=== PATIENT | female | born 1995 | race Caucasian/White ===

== ENCOUNTER 2019-01-03 15:58 | Emergency (ER) | payer OTHER, MEDICAID, SELFPAY ==
[2019-01-03 16:22] VITALS: BP 130/87; PULSE 133; RESP 20; TEMP 37.2; O2SAT 99; BMI 30.5
--- NOTE | 2019-01-03 16:32 | DI.US.S_ITS ---
PROCEDURE: US PELVIC COMPLETE INDICATIONS: s/p by 1 week, large amt bleeding TECHNIQUE: Real-time scanning was performed of the pelvic organs, with image documentation. Additional endovaginal scanning was necessary due to incomplete visualization of the adnexal and endometrial structures by transabdominal scanning. COMPARISON: [facility], , PELVIC COMPLETE, 06/28/2016, 7:02. FINDINGS: Transabdominal scanning: Limited scanning through the kidneys demonstrates increased echogenicity within the medullary treatments suggestive of medullary nephrocalcinosis. No pathologic free abdominal or pelvic fluid. Endovaginal scanning: Uterus: Uterus measures 9.1 x 4.4 x 5.5 cm. The endometrium measures up to 1.6 cm in thickness and appears heterogeneous in appearance. No definite internal vascularity on color Doppler interrogation but there is adjacent vascularity noted along the margins of the endometrium. There is mobile debris noted within the endometrium. There is also isoechoic debris within the cervical canal. Ovaries: The ovaries were not visualized. No adnexal masses identified. IMPRESSION: 1. Thickened heterogeneous appearance of the endometrium with mobile contents. Although no definite internal vascularity is noted, retained products of conception cannot be excluded. Dictated by: Gilson Pink M.D. on 01/03/2019 at 19:01 Approved by: Gilson Pink M.D. on 01/03/2019 at 19:05
--- NOTE | 2019-01-03 16:37 | ED_ITS ---
HPI - Female Genitourinary General Chief complaint: Vaginal Bleeding Stated complaint: Bleeding/migraine Time Seen by Provider: 01/03/19 16:21 Source: patient Mode of arrival: ambulatory Limitations: no limitations History of Present Illness HPI Narrative: This is a 23-year-old female comes in with complaint of back pain and vaginal bleeding. Patient states week ago she had a . Since then she started having bleeding a couple days afterwards and it has gotten worse. She states seems more bright red she has noticed a lot of clots. She has had a lot of back pain bilaterally. She has not noticed if she has had any significant abdominal pain. She has not had any fevers but does feel chilled. She has not any shortness of breath or chest pain or pressure. No nausea or vomiting. No other GI or urinary symptoms. She has not noticed any foul odor other vaginal discharge. She has had 4 prior pregnancies that went to completion. She denies any other past medical history. [facility] in [place]. She follows with Dr. Beard is her primary care. Related Data Home Medications Medication Instructions Recorded Confirmed ibuprofen 800 mg PO TID PRN PRN 01/03/19 01/03/19 Previous Rx's Medication Instructions Recorded albuterol sulfate [Ventolin HFA] 2 puff INH Q4HP PRN #2 inh 03/15/17 vit-iron fum-folic ac 1 cap PO QDAY #90 cap 03/27/17 [Mynatal] [Maternity Band] #1 07/04/17 docusate sodium [Colace] 100 mg PO BID #30 cap 10/27/17 fluconazole [Diflucan] 150 mg PO QDAY #7 tab 11/26/17 drospirenone-ethinyl estradiol 1 tab PO QDAY #3 pac 01/29/18 [Ocella] etonogestrel-ethinyl estradiol 1 icr VG Q 3 WEEKS #10 vag ring 03/07/18 [NuvaRing] meloxicam [Mobic] 7.5 mg PO BID PRN #10 tab 01/03/19 Allergies Allergy/AdvReac Type Severity Reaction Status Date / Time amoxicillin [AMOXICILLIN] Allergy Mild Verified 01/03/19 16:22 bacitracin [BACITRACIN] Allergy Mild Verified 01/03/19 16:22 cefuroxime [CEFUROXIME] Allergy Mild Verified 01/03/19 16:22 clavulanic acid Allergy Mild Verified 01/03/19 16:22 [CLAVULANIC ACID] codeine [CODEINE] Allergy Mild Verified 01/03/19 16:22 egg [EGG] Allergy Mild Verified 01/03/19 16:22 hydrocodone [HYDROCODONE] Allergy Mild anaphylaxis Verified 01/03/19 16:22 Penicillins [PENICILLINS] Allergy Mild Verified 01/03/19 16:22 polymyxin B [POLYMYXIN B] Allergy Mild Verified 01/03/19 16:22 ciprofloxacin [CIPROFLOXACIN] Allergy Unknown Verified 01/03/19 16:22 mebendazole [MEBENDAZOLE] Allergy Unknown Unverified 02/27/18 13:04 neomycin [NEOMYCIN] Allergy Unknown Unverified 02/27/18 13:04 Sulfa (Sulfonamide Allergy Unknown Unverified 02/27/18 13:04 Antibiotics) [SULFA (SULFONAMIDE ANTIBIOTICS)] Review of Systems Review of Systems ROS Unobtainable: All systems reviewed & are unremarkable except as noted in HPI and below Constitutional Reports chills, Denies fever(s), Denies lethargy and Denies weakness Cardiovascular Denies chest pain and Denies dyspnea Respiratory Denies dyspnea Gastrointestinal Gastrointestinal: Denies abdominal pain, Denies change in bowel habits, Denies diarrhea, Denies nausea and Denies vomiting Genitourinary Reports as per HPI, Reports abnormal vaginal bleeding, Denies dysuria, Denies urinary incontinence, Denies urinary hesitancy, Denies urinary urgency, Denies vaginal discharge and Denies vaginal odor Musculoskeletal Reports back pain (bilateral lower back/pelvic area) Integumentary/Breasts Denies rash and Denies unusual bruising Neurologic Denies weakness [facility] Surgical History Status post myringotomy with insertion of tube Family History Father Hyperlipidemia Hypertension Depression Social History Smoking Status: Never smoker Family History Father Hyperlipidemia Hypertension Depression Social History marital status: Smoking Status: Never smoker Exam Initial Vital Signs Initial Vital Signs: Vital Signs Temperature 98.9 F 01/03/19 16:22 Pulse Rate 133 H 01/03/19 16:22 Respiratory Rate 20 01/03/19 16:22 Blood Pressure 130/87 01/03/19 16:22 Pulse Oximetry 99 01/03/19 16:22 GENERAL: Alert and oriented x three, well-nourished female in moderate distress. Patient appears mildly uncomfortable. HEENT: Head normocephalic, atraumatic, EOMI, pupils reactive, face symmetric, moist mucous membranes NECK: Supple, full range of motion CARDIOVASCULAR: Regular rate and rhythm without murmurs, rubs or gallops. RESPIRATORY: Breath sounds equal bilaterally, no wheezes rales or rhonchi. ABDOMEN: Soft, mild generalized tenderness. Normoactive bowel sounds all 4 quadrants. No guarding or rebound, rigidity, no mass : Bilateral CVA tenderness. Female: external vaginal exam is normal, mild vaginal bleeding, no discharge, mild cervical motion tenderness, normal speculum exam, no adnexal tenderness/mass. Bimanual exam is normal, no mildly enlarged and tender uterus. Non-gravid. EXTREMITIES: Normal range of motion, no clubbing or edema. Neurovascularly intact NEUROLOGICAL: Cranial nerves II through XII grossly intact. Moving all extremities SKIN: Warm, dry, no petechiae, no rashes or lesions. Course Orders Ordered: ED Orders 01/03/19 16:32 US pelvic complete Stat 01/03/19 16:40 Complete Blood Count AUTO DIFF Stat Comprehensive Metabolic Panel Stat HCG Quantitative Stat Lactate (Lactic Acid) Stat Partial Thromboplastin Time Stat Prothrombin Time INR Stat 01/03/19 17:07 Blood Culture Stat Discontinued Medications Sodium Chloride (Normal Saline 0.9%) 1,000 mls @ 1,000 mls/hr IV BOLUS ONE Stop: 01/03/19 17:31 Last Admin: 01/03/19 16:51 Dose: 1,000 mls/hr Ketorolac Tromethamine (Toradol) 30 mg IV NOW ONE Stop: 01/03/19 16:33 Last Admin: 01/03/19 16:52 Dose: 30 mg Vital Signs - 8 hr 01/03/19 16:22 01/03/19 18:34 Temperature 98.9 F Pulse Rate 133 H 117 H Respiratory Rate 20 16 Blood Pressure 130/87 Blood Pressure [Left Arm] 123/77 Pulse Oximetry 99 97 MDM - Female Genitourinary Lab Data Attestation: I reviewed the patient's lab results. Result diagrams: 01/03/19 16:40 01/03/19 16:40 Lab Results 01/03/19 01/03/19 01/03/19 Range/Units 16:40 16:40 16:40 WBC 11.5 H (4.5-11.0) X10^3/uL RBC 4.82 (4.0-5.2) X10^6/uL Hgb 14.0 (12.0-16.0) g/dL Hct 41.8 (36-46) % MCV 86.8 (80-100) fL MCH 29.1 (26-34) PG MCHC 33.6 (30-36) % RDW 13.6 (11.6-14.8) % Plt Count 307 (150-400) X10^3/uL Neut % (Auto) 88.8 H (50-75) % Lymph % (Auto) 5.8 L (25-40) % Hendricks % (Auto) 5.0 (3-14) % Eos % (Auto) 0.1 L (2-4) % Baso % (Auto) 0.3 (0-2) % Neut # (Auto) 33638 H (8458-3336) /uL Lymph # (Auto) 700 L (3753-5163) /uL Hendricks # (Auto) 600 (0-900) /uL Eos # (Auto) 0 (0-450) /uL Baso # (Auto) 0 (0-100) /uL PT 12.6 (10.1-12.7) SECONDS INR 1.1 (0.9-1.3) APTT 26 L (26.4-36.2) SECONDS Sodium 138 (137-145) mmol/L Potassium 3.9 (3.4-5.1) mmol/L Chloride 101 (98-107) mmol/L Carbon Dioxide 27 (22-32) mmol/L BUN 9 (7-17) mg/dL Creatinine 0.80 (0.52-1.04) mg/dL Estimated GFR > 60.0 (>60) mL/min BUN/Creatinine Ratio 11.3 (6-22) Glucose 99 (70-100) mg/dL Lactate (0.7-2.1) mmol/L Calcium 9.5 (8.4-10.2) mg/dL Total Bilirubin 0.5 (0.2-1.3) mg/dL AST 20 (14-36) IU/L ALT 24 (9-52) IU/L Alkaline Phosphatase 97 (38-126) U/L Total Protein 7.8 (6.3-8.2) g/dL Albumin 4.4 (3.5-5.0) g/dL Globulin 3.4 (1.7-4.1) g/dL Albumin/Globulin Ratio 1.3 (1.0-2.8) 01/03/19 Range/Units 16:40 WBC (4.5-11.0) X10^3/uL RBC (4.0-5.2) X10^6/uL Hgb (12.0-16.0) g/dL Hct (36-46) % MCV (80-100) fL MCH (26-34) PG MCHC (30-36) % RDW (11.6-14.8) % Plt Count (150-400) X10^3/uL Neut % (Auto) (50-75) % Lymph % (Auto) (25-40) % Hendricks % (Auto) (3-14) % Eos % (Auto) (2-4) % Baso % (Auto) (0-2) % Neut # (Auto) (6373-9056) /uL Lymph # (Auto) (4412-5428) /uL Hendricks # (Auto) (0-900) /uL Eos # (Auto) (0-450) /uL Baso # (Auto) (0-100) /uL PT (10.1-12.7) SECONDS INR (0.9-1.3) APTT (26.4-36.2) SECONDS Sodium (137-145) mmol/L Potassium (3.4-5.1) mmol/L Chloride (98-107) mmol/L Carbon Dioxide (22-32) mmol/L BUN (7-17) mg/dL Creatinine (0.52-1.04) mg/dL Estimated GFR (>60) mL/min BUN/Creatinine Ratio (6-22) Glucose (70-100) mg/dL Lactate 1.2 (0.7-2.1) mmol/L Calcium (8.4-10.2) mg/dL Total Bilirubin (0.2-1.3) mg/dL AST (14-36) IU/L ALT (9-52) IU/L Alkaline Phosphatase (38-126) U/L Total Protein (6.3-8.2) g/dL Albumin (3.5-5.0) g/dL Globulin (1.7-4.1) g/dL Albumin/Globulin Ratio (1.0-2.8) Point of Care Testing Test Results Positive Urine Dip Bedside Urine Glucose Negative Bedside Urine Bilirubin - Negative Bedside Urine Ketone - Negative Urine Specific [place] 1.015 Bedside Urine Occult Blood +++ Bedside Urine pH 7.5 Bedside Urine Protein +/- 15 Bedside Urine Urobilinogen - Negative Bedside Urine Nitrite - Negative Bedside Urine Leukocytes - Negative Esterase MDM Narrative Medical decision making narrative: Quant HCG added on as patient still has positive test s/p . Pending. Patient labs show normal hemoglobin which is up from last. Pelvic US is pending. Patient hemodynamically stable in department. No signs of sepsis. Patient symptoms improved after Toradol but after pelvic exam and US worsening. She drove herself and does not have a ride. Patient signed out to Dr. Yee while US is pending for final disposition. Discharge Plan Departure Activity Restrictions/Additional Instructions: Follow up with Dr. Beard in the next 3-4 days for recheck. Call Sunday morning for an appointment. A HCG level was sent today for baseline lab, they will want to make sure your HCG level returns to 0 and will need recheck. You may take tylenol up to 1000mg every 8 hours as needed for pain, you have also been prescribed mobic 7.5mg which you can take twice daily as needed for pain. You may take these two medications together. Return to the emergency department for fevers, worsening abdominal pain, black or bloody stools, persistent vomiting, foul odor or purulent discharge vaginal area, painful urination frequency or urgency. Prescriptions: New meloxicam [Mobic] 7.5 mg tablet 7.5 mg PO BID PRN (Reason: pain) Qty: 10 RF: 0 No Action albuterol sulfate [Ventolin HFA] 90 MCG/PUFF HFA aerosol inhaler 2 puff INH Q4HP PRNQty: 2 RF: 2 vit-iron fum-folic ac [Mynatal] 1 EACH capsule 1 cap PO QDAY Qty: 90 RF: 3 [Maternity Band] Qty: 1 RF: 0 docusate sodium [Colace] 100 MG capsule 100 mg PO BID Qty: 30 RF: 0 fluconazole [Diflucan] 150 MG tablet 150 mg PO QDAY Qty: 7 RF: 0 drospirenone-ethinyl estradiol [Ocella] 0.03 MG/3 MG tablet 1 tab PO QDAY Qty: 3 RF: 3 etonogestrel-ethinyl estradiol [NuvaRing] 1 EACH ring 1 icr VG Q 3 WEEKS Qty: 10 RF: 0 ibuprofen 800 MG tablet 800 mg PO TID PRN PRN (Reason: pain) RF: 0 Referrals: Frank Beard MD [Primary Care Provider] -
[2019-01-03 16:49] LABS: Add Manual Diff / Slide Review NO; Basophils Absolute Auto 0 /uL (0-100); Basophils Percent Auto 0.3 % (0-2); Eosinophils Absolute Auto 0 /uL (0-450); Eosinophils Percent Auto 0.1 % (2-4); Hematocrit 41.8 % (36-46); Lymphocytes Absolute Auto 700 /uL (1100-4500); Lymphocytes Percent Auto 5.8 % (25-40); Mean Corpuscular HGB Conc 33.6 % (30-36); Mean Corpuscular Hemoglobin 29.1 PG (26-34); Mean Corpuscular Volume 86.8 fL (80-100); Monocytes Absolute Auto 600 /uL (0-900); Neutrophils Absolute Auto 10200 /uL (1500-7000); Neutrophils Percent Auto 88.8 % (50-75); Platelet Count 307 X10^3/uL (150-400); Red Blood Cell Count 4.82 X10^6/uL (4.0-5.2); Red Cell Distribution Width 13.6 % (11.6-14.8); White Blood Cell Count 11.5 X10^3/uL (4.5-11.0)
[2019-01-03] MEDS: SODIUM CHLORIDE 0.9% 1,000 ML 1000 ML IV (16:51)
[2019-01-03] MEDS: KETOROLAC 30 MG/ML VIAL IV (16:52)
[2019-01-03 16:56] LABS: INR 1.1 (0.9-1.3); Prothrombin Time 12.6 SECONDS (10.1-12.7)
[2019-01-03 16:59] LABS: PTT Partial Thromboplastin Tim 26 SECONDS (26.4-36.2)
[2019-01-03 17:01] LABS: Alanine Aminotransferase 24 IU/L (9-52); Albumin 4.4 g/dL (3.5-5.0); Albumin Globulin Ratio 1.3 (1.0-2.8); Alkaline Phosphatase 97 U/L (38-126); Aspartate Aminotransferase 20 IU/L (14-36); BUN Creatinine Ratio 11.3 (6-22); Bilirubin Total 0.5 mg/dL (0.2-1.3); Blood Urea Nitrogen 9 mg/dL (7-17); Calcium 9.5 mg/dL (8.4-10.2); Carbon Dioxide 27 mmol/L (22-32); Chloride 101 mmol/L (98-107); Estimated Glomerular Filt Rate > 60.0 mL/min (>60); Globulin 3.4 g/dL (1.7-4.1); Glucose 99 mg/dL (70-100); HEMOLYSIS < 15 (0-50); Lactate (Lactic Acid) 1.2 mmol/L (0.7-2.1); Potassium 3.9 mmol/L (3.4-5.1); Sodium 138 mmol/L (137-145); Total Protein 7.8 g/dL (6.3-8.2)
[2019-01-03 18:34] VITALS: BP 123/77; PULSE 117; RESP 16; O2SAT 97
[2019-01-03 18:59] LABS: HCG Quantitative /Beta subunit 524.26 mIU/mL
[2019-01-03 19:16] VITALS: TEMP 37.7
[2019-01-03 19:28] VITALS: BP 100/55; PULSE 106; RESP 15; O2SAT 99
== END 2019-01-03 19:41 | disposition home or self-care (01) ==
PROVIDERS: Emergency Provider Emergency Medicine; Family Provider Family Medicine; PCP Family Medicine
DX: O03.4 Incomplete spontaneous abortion without complication (principal)
CPT/HCPCS: 36415; 36591; 76830; 76856; 80053; 81003; 81025; 83605; 84702; 85025; 85610; 85730; 87040; 96361; 96374; 99283; 99284; J1885

== ENCOUNTER → 2019-11-21 12:42 | Outpatient (CLI) | payer OTHER, MEDICAID, SELFPAY ==
--- NOTE | 2019-11-21 12:43 | DI.US.S_ITS ---
PROCEDURE: US PELVIC COMPLETE INDICATIONS: PAIN; DUB TECHNIQUE: Real-time scanning was performed of the pelvic organs, with image documentation. Additional endovaginal scanning was necessary due to incomplete visualization of the adnexal and endometrial structures by transabdominal scanning. COMPARISON: [facility], , US PELVIC COMPLETE, 01/03/2019, 17:24. FINDINGS: Transabdominal scanning: Limited scanning through the kidneys shows no hydronephrosis. Increased echogenicity involving the medullary portions of the kidneys is incidentally noted. No pathologic free abdominal or pelvic fluid. Endovaginal scanning: Uterus: Uterus is normal in size at 9.5 x 3.8 x 5.9 cm. The endometrium measures 11.7 mm in combined thickness. A small (3 mm) cystic structure is seen along the upper aspect of the endometrium. Endometrium is somewhat heterogeneous. No focal myometrial lesions are identified. Ovaries: Both ovaries are normal in size. The right ovary measures 1.90 1.6 x 1.2 cm. The left ovary measures 3.4 x 2.4 x 2.5 cm. There is a 2.4 x 2.0 x 2.1 cm cyst identified involving the left ovary that demonstrates low level internal echoes. No additional cysts are evident. Bilateral follicles are noted. IMPRESSION: 1. Cystic structure within the fundal portion of the endometrium is nonspecific and may represent adenomyosis. Clinical correlation to exclude the possibility of early is recommended. 2. Probable small left ovarian hemorrhagic cyst. Dictated by: James Huang M.D. on 11/21/2019 at 12:29 Approved by: James Huang M.D. on 11/21/2019 at 12:39
== END ==
PROVIDERS: Family Provider Family Medicine; PCP Family Medicine; Visit Provider Family Medicine
DX: N93.8 Other specified abnormal uterine and vaginal bleeding (principal); N92.3 Ovulation bleeding; N94.89 Other specified conditions associated with female genital organs and menstrual cycle
CPT/HCPCS: 76856

== ENCOUNTER 2020-01-01 00:26 | Emergency (ER) | payer OTHER, MEDICAID, SELFPAY ==
[2020-01-01 00:35] VITALS: BP 151/78; PULSE 84; RESP 15; TEMP 36.9; O2SAT 100; BMI 24.3
[2020-01-01 01:04] LABS: Hematocrit 39.7 % (36-46); Hemoglobin 13.4 g/dL (12.0-16.0)
--- NOTE | 2020-01-01 01:31 | ED.FEMALEGU ---
HPI - Female Genitourinary General Chief complaint: OB/Uterine Contractions Stated complaint: huge clots - miscarriage 2 weeks ago Time Seen by Provider: 01/01/20 00:30 Source: patient Mode of arrival: Family Vehicle Limitations: no limitations History of Present Illness HPI Narrative: 24F daily smoker is whom suggests she is about 6 weeks, but has likely been miscarrying for about two weeks. She states last period was mid October and she has had episodes of cramping and vaginal bleeding off and on for about 2 weeks. She denies fever or chills, she has had some cramps Related Data Previous Rx's Medication Instructions Recorded albuterol sulfate [Ventolin HFA] 2 puff INH Q4HP PRN #2 inh 03/15/17 drospirenone 3 mg-ethinyl 1 tab PO DAILY #84 tab 11/24/19 estradiol 0.03 mg tablet Allergies Allergy/AdvReac Type Severity Reaction Status Date / Time amoxicillin [AMOXICILLIN] Allergy Mild Verified 11/24/19 13:48 bacitracin [BACITRACIN] Allergy Mild Verified 11/24/19 13:48 cefuroxime [CEFUROXIME] Allergy Mild Verified 11/24/19 13:48 clavulanic acid Allergy Mild Verified 11/24/19 13:48 [CLAVULANIC ACID] codeine [CODEINE] Allergy Mild Verified 11/24/19 13:48 egg [EGG] Allergy Mild Verified 11/24/19 13:48 hydrocodone [HYDROCODONE] Allergy Mild anaphylaxis Verified 11/24/19 13:48 Penicillins [PENICILLINS] Allergy Mild Verified 11/24/19 13:48 polymyxin B [POLYMYXIN B] Allergy Mild Verified 11/24/19 13:48 ciprofloxacin [CIPROFLOXACIN] Allergy Unknown Verified 11/24/19 13:48 mebendazole [MEBENDAZOLE] Allergy Unknown Verified 11/24/19 13:48 neomycin [NEOMYCIN] Allergy Unknown Verified 11/24/19 13:48 Sulfa (Sulfonamide Allergy Unknown Verified 11/24/19 13:48 Antibiotics) [SULFA (SULFONAMIDE ANTIBIOTICS)] Review of Systems Constitutional Constitutional: Denies chills, Denies fatigue, Denies fever(s), Denies frequent falls, Denies lethargy and Denies weakness Eyes Eyes: Denies change in vision, Denies eye discharge, Denies irritation and Denies loss of vision ENT Ears, Nose, Mouth, and Throat: Denies change in voice, Denies dizziness, Denies neck pain, Denies sore throat and Denies throat swelling Cardiovascular Cardiovascular: Denies chest pain, Denies irregular heart rhythm, Denies lightheadedness, Denies palpitations, Denies dyspnea, Denies dyspnea on exertion and Denies orthopnea Respiratory Respiratory: Denies cough, Denies dyspnea, Denies dyspnea on exertion and Denies wheezing Gastrointestinal Gastrointestinal: Denies abdominal pain, Denies change in bowel habits, Denies diarrhea, Denies nausea and Denies vomiting Genitourinary Genitourinary: Denies hematuria, Denies flank pain, Denies urinary incontinence and Denies urinary urgency Musculoskeletal Musculoskeletal: Denies back pain, Denies muscle weakness, Denies neck pain, Denies numbness and Denies tingling Integumentary/Breasts Skin/Breast: Denies pruritus, Denies erythema, Denies rash and Denies wounds Neurologic Neurologic: Denies behavioral changes, Denies confusion, Denies dizziness, Denies frequent falls, Denies loss of vision, Denies numbness, Denies tingling and Denies weakness Psychiatric Psychiatric: Denies anxiety, Denies behavioral changes, Denies confusion, Denies depression, Denies homicidal ideation and Denies suicidal ideation Endocrine Endocrine: Denies fatigue, Denies flushing and Denies palpitations Hematologic/Lymphatic Hematologic/Lymphatic: Denies easy bruising Allergic/Immunologic Allergic/Immunologic: Denies urticaria, Denies throat swelling and Denies wheezing Patient History alcohol intake frequency: a few times a week Substance Use Type: marijuana Exam Narrative Exam Narrative: GEN: AOx3 and in mild distress EYES: Pupils are equal, round, and reactive to light and accommodation. Extraoccular muscles are intact bilaterally. There is no subconjunctival hemorrhage or exudate. CHEST: Lungs are clear to auscultation bilaterally and free of wheezes, rales, or rhonchi. Heart rate is regular rhythm, there are no murmurs, clicks, rubs, or gallops. There is no chest wall tenderness. ABD: Abdomen is soft and mildly tender in suprapubic region. There is no guarding or rebound. Bowel sounds are normal in all 4 quadrants. There is no mass or organomegaly. PELVIC: deferred EXT: Full painless ROM of all extremities with no loss of sensation or strength. SKIN: Warm, pink, and dry. No erythema or rash Initial Vital Signs Initial Vital Signs: Vital Signs Temperature 98.5 F 01/01/20 00:35 Pulse Rate 84 01/01/20 00:35 Respiratory Rate 15 01/01/20 00:35 Blood Pressure 151/78 H 01/01/20 00:35 Pulse Oximetry 100 01/01/20 00:35 Course Orders Ordered: ED Orders 01/01/20 00:54 HCG Quantitative /Beta subunit Stat Hematocrit Stat Hemoglobin Stat 01/01/20 01:00 Urine Microscopic Stat 01/01/20 02:26 US pelvic complete Stat Vital Signs Vital signs: Vital Signs - 8 hr 01/01/20 00:35 Temperature 98.5 F Pulse Rate 84 Respiratory Rate 15 Blood Pressure 151/78 H Pulse Oximetry 100 MDM - Female Genitourinary Lab Data Result diagrams: 01/01/20 00:54 Labs: Lab Results 01/01/20 01/01/20 01/01/20 Range/Units 00:54 00:54 01:00 Hgb 13.4 (12.0-16.0) g/dL Hct 39.7 (36-46) % HCG, Quant 1138.1 mIU/mL Urine RBC 1-5/hpf (0-5/HPF) Urine WBC 0-1/hpf (0-5/HPF) Ur Squamous Epith Cells 0-1 /hpf (0-5/HPF) Urine Bacteria Occasional (0-1) (None) Ur Culture Indicated? Specimen cultured Point of Care Testing Test Results Positive Urine Dip Bedside Urine Glucose Negative Bedside Urine Bilirubin - Negative Bedside Urine Ketone - Negative Urine Specific [place] 1.015 Bedside Urine Occult Blood +++ Bedside Urine pH 6.5 Bedside Urine Protein - Negative Bedside Urine Urobilinogen - Negative Bedside Urine Nitrite - Negative Bedside Urine Leukocytes +/- 15 Esterase Imaging Data US - REGISTRATION OFFICER: Radiologist's Impression: No IUP Discharge Plan Departure Patient Disposition: Home Clinical Impression: Miscarriage Instructions: DI for Miscarriage Activity Restrictions/Additional Instructions: *You have been diagnosed with [ pelvic cramping, likely miscarriage ] *What to do: *Follow up with your primary care provider in 2-3 days, call for an appointment. Let them know you were seen in the Emergency Department and that we ask that you be seen in follow up. THey will likely want to repeat a blood test and maybe ultrasound *Return to ER if you should have any new, worsening or concerning symptoms, such as [fever > 101F, bleeding enough to soak through a pad per hour, worsening pain or other bothersome symptoms ] Prescriptions: No Action drospirenone-ethinyl estradiol [Ocella] 3-0.03 mg tablet 1 tab PO DAILY Qty: 84 RF: 3 albuterol sulfate [Ventolin HFA] 90 MCG/PUFF HFA aerosol inhaler 2 puff INH Q4HP PRNQty: 2 RF: 2 Referrals: Frank Beard MD [Primary Care Provider] -
[2020-01-01 01:32] LABS: HCG Quantitative /Beta subunit 1138.1 mIU/mL
[2020-01-01 02:04] LABS: Bacteria Urine Occasional (0-1); RBC Urine 1-5/HPF (0-5/HPF); Squamous Epithelial Cell Urine 0-1 /HPF (0-5/HPF); WBC Urine 0-1/HPF (0-5/HPF)
[2020-01-01 02:23] LABS: Culture Indicated Urine Specimen Cultured
--- NOTE | 2020-01-01 02:26 | DI.US.S_ITS ---
PROCEDURE: US PELVIC COMPLETE INDICATIONS: POSITIVE HCG; HEAVY BLEEDING TECHNIQUE: Real-time scanning was performed of the pelvic organs, with image documentation. Additional endovaginal scanning was necessary due to incomplete visualization of the adnexal and endometrial structures by transabdominal scanning. COMPARISON: None. FINDINGS: Transabdominal scanning: Limited scanning through the kidneys shows no hydronephrosis. No pathologic free abdominal or pelvic fluid. Endovaginal scanning: Uterus: Uterus is normal in size at 8.4 x 3.9 x 6.1 cm. The endometrium measures 15 mm in combined thickness. There is a 1.2 x 2.3 x 1.9 cm solid appearing mass with slightly hyperechoic echotexture in the endometrium. Doppler evaluation demonstrates no internal vascularity associated with the lesion. Ovaries: Right ovary measures 2.5 x 1.3 x 1.5 cm. Left ovary measures 2.3 x 1.4 x 1.0 cm. Ovaries are sonographically normal. IMPRESSION: 1. Mildly thickened, endometrium with 1.2 x 2.3 x 1.9 cm slightly hyperechoic endometrial mass which may represent blood clot, however correlation with serial beta hCG and short term followup ultrasound recommended to exclude other etiologies including retained products of conception and gestational trophoblastic disease. 2. Ovaries are sonographically normal Dictated by: Mely Vital MD, PhD on 01/01/2020 at 8:43 Approved by: Mely Vital MD, PhD on 01/01/2020 at 8:46
== END 2020-01-01 03:00 | disposition home or self-care (01) ==
PROVIDERS: Emergency Provider Emergency Medicine; Family Provider Family Medicine; PCP Family Medicine
DX: O03.9 Complete or unspecified spontaneous abortion without complication (principal)
CPT/HCPCS: 36415; 76830; 76856; 81003; 81015; 81025; 84702; 85014; 85018; 87086; 99284

== ENCOUNTER → 2021-12-02 14:53 | Outpatient (CLI) | payer OTHER, MEDICAID, SELFPAY | PROVIDERS: Family Provider Family Medicine; PCP Family Medicine; Visit Provider Nurse Practitioner Family | DX: R30.0 Dysuria (principal) | CPT/HCPCS: 81002; 87077; 87086; 87186 ==